=== PATIENT | male | born 1935 | race Caucasian/White ===

== ENCOUNTER 2020-06-01 15:05 | Emergency (ER) | payer MEDICARE, SELFPAY ==
[2020-06-01 15:10] VITALS: BP 161/77; PULSE 64; RESP 16; TEMP 36.7; O2SAT 98; BMI 22.4
--- NOTE | 2020-06-01 16:06 | ED.WOUNDLAC ---
HPI - Wound/Laceration General Chief Complaint: Wound/Laceration Stated Complaint: LAC Time Seen by Provider: 06/01/20 15:40 Source: patient Mode of arrival: ambulatory Limitations: no limitations History of Present Illness HPI narrative: 84-year-old male who tells me he was outside walking when he saw a pretty pink rock and went to pick it up for his but was scared by a bunny and so became startled and fell. He struck the right elbow as well as will hit his bilateral hands. He denies hitting his head or loss of consciousness. Denies anticoagulation use. No joint pain or swelling. Related Data Allergies Allergy/AdvReac Type Severity Reaction Status Date / Time No Known Allergies Allergy Unverified 11/13/19 15:11 Review of Systems Review of Systems: Yes all other systems are reviewed and are negative Constitutional: Constitutional: Reports no additional constitutional complaints, Denies body ache(s), Denies chills, Denies fever(s), Denies headache(s) and Denies weakness Eyes: Eyes: Reports no additional eye complaints and Denies change in vision ENT: Reports system reviewed and no additional complaints, except as documented, Denies dizziness, Denies headache(s), Denies nasal congestion, Denies nasal discharge and Denies neck pain Cardiovascular: Cardiovascular: Reports no additional cardiovascular complaints, Denies chest pain, Denies leg edema and Denies dyspnea Respiratory: Respiratory: Reports no additional respiratory complaints, Denies cough and Denies dyspnea Gastrointestinal: Gastrointestinal: Reports no additional gastrointestinal complaints, Denies abdominal pain, Denies diarrhea, Denies nausea and Denies vomiting Genitourinary: Genitourinary: Denies urinary incontinence Musculoskeletal: Musculoskeletal: Reports no additional musculoskeletal complaints, Denies back pain, Denies arthralgias, Denies joint swelling, Denies neck pain, Denies numbness and Denies tingling Integumentary/Breasts: Skin/Breast: Reports system reviewed and no additional complaints, except as docu and Denies rash Comments: Skin tear Neurologic: Reports system reviewed and no additional complaints, except as documented, Denies Abnormal speech present, Denies dizziness, Denies headache(s), Denies numbness, Denies tingling and Denies weakness PMF Past Medical History Attestation statement: The following information was validated with the patient. Source: old records reviewed and nursing notes reviewed Medical History Tremor Social History Social History Advance Directives: No Advance Directives Information Provided: No Physical Exam Vital Signs: Vital Signs: Last Vital Signs Temp 98.1 F 06/01/20 15:10 Pulse 64 06/01/20 15:10 Resp 16 06/01/20 15:10 BP 161/77 H 06/01/20 15:10 Pulse Ox 98 06/01/20 15:10 Body Mass Index 22.4 Const: General: cooperative, healthy appearing, comfortable and no acute distress Orientation/consciousness: patient oriented x3 Limitations: no limitations HENMT: Head: Yes normal to inspection Ears: hearing grossly normal bilaterally General nose exam: Normal external nose present Face and sinus: Yes normal facial exam Mouth: Normal oral and palatal mucosa present Throat: Yes posterior oropharynx normal Eyes: General: appearance normal, both eyes and all related structures Pupils: Equal, round and reactive pupils present Neck: Neck: Yes normal visual inspection Chest: Chest palpation & inspection: normal inspection of the chest Resp: Effort & Inspection: normal respiratory effort Auscultation: clear to auscultation bilaterally Cardio: Rate: regular rate Rhythm: regular rhythm Peripheral pulses: Peripheral pulses 2+ throughout GI: Inspection: Yes normal to inspection Palpation (GI): Soft to palpation and nontender Auscultation: normal bowel sounds Back/Spine/Pelvis: Thoracic/Lumbar Spine: thoracic and lumbar spine normal to inspection Skin: General skin exam: no rashes or lesions noted Neuro: General: patient oriented x3, no focal motor deficits and normal sensation to monofilament Cranial nerves: Yes Equal, round and reactive pupils present Cognition (Neuro): normal cognition Speech: No Abnormal speech present Gait exam (Neuro): Normal gait present Motor exam (neuro): 5/5 motor strength present throughout Extrem: Other: 1. right wrist distal volar wrist 2cm skin avulsion. No active bleeding. No joint pain. Full range of motion. 2. left wrist distal volar wrist 2cm skin avulsion. No active bleeding. No joint pain. Full range of motion. 3. right distal dorsal FA 4m skin avulsion. No active bleeding. No joint pain. Full range of motion. 4. right proximal dorsal FA 8cm skin avulsion. No active bleeding. No joint pain. Full range of motion. General: Yes normal to inspection Course Course Course Narrative: Multiple skin tears from a mechanical fall. No head injury or loss of consciousness. Full range of motion of all affected joints. Declined tetanus shot. Sites were cleansed with normal saline and hydrogen peroxide with a vigorous scrub. Steri-Strips were applied with a Kerlix wrap to all four sites. Reviewed worrisome and symptoms and when to return to the emergency department. Comfortable discharge home. Discharge Plan Discharge Clinical Impression: Avulsion of skin Patient Disposition: Home, Self-Care Instructions: Skin Avulsion (ED) Additional Instructions: The steri strips will start to lift and fall off You may trim the edges Remove after 7 days Return for redness, drainage, fevers, chills, difficulty moving the joints that are affected Referrals: Piotr Farley MD [Primary Care Provider] - 2 days Interventions: ED Discharge Assessment Last Done: 06/01/20 16:16 Discharge Date/Time: 06/01/20 16:17
== END 2020-06-01 16:17 | disposition home or self-care (01) ==
PROVIDERS: Emergency Provider Emergency Medicine; PCP Internal Medicine
DX: S51.001A Unspecified open wound of right elbow, initial encounter (principal); M79.642 Pain in left hand; M79.641 Pain in right hand; W01.0XXA Fall on same level from slipping, tripping and stumbling without subsequent striking against object, initial encounter; Y93.01 Activity, walking, marching and hiking; Y92.9 Unspecified place or not applicable; Y99.9 Unspecified external cause status
CPT/HCPCS: 99283

== ENCOUNTER 2020-07-01 11:21 | Emergency (ER) | payer MEDICARE, SELFPAY ==
[2020-07-01 11:29] VITALS: BP 141/77; PULSE 58; RESP 16; TEMP 36.6; O2SAT 98; BMI 23.7
--- NOTE | 2020-07-01 12:01 | PC.NURSE ---
bilateral upper arm skin tears. bleeding controlled.
--- NOTE | 2020-07-01 12:34 | ED.GENADULT ---
HPI - General Adult General Chief complaint: Fall Stated complaint: FALL Time Seen by Provider: 07/01/20 12:34 Source: patient Limitations: no limitations History of Present Illness HPI narrative: Patient states he he was stepping off a step ladder and lost his footing cutting his right and left elbows on his deck. Patient states he was cleaning her bird feces on his 's 10. Patient denies any loss of consciousness or hitting his head or any other complaints of his extremities. Patient denies being on any blood thinners denies tobacco history. Patient denies dizziness shortness of breath fever chills. Related Data Allergies Allergy/AdvReac Type Severity Reaction Status Date / Time No Known Allergies Allergy Unverified 11/13/19 15:11 Review of Systems Review of Systems: Constitutional : No Weight loss, No Fever, No Chills Eyes: No Eye Pain, No Swelling, No Redness, No Foreign Body, No Discharge, No Vision Changes Cardiovascular : No Chest Pain, No SOB, No Dyspnea on Exertion, No Orthopnea, No Edema, No Palpitations Respiratory : No Cough, No Sputum, No Wheezing, No Smoke Exposure, No Dyspnea Gastrointestinal : No Nausea, No Vomiting, No Diarrhea Musculoskeletal : No joint pain, No Myalgias, No Joint SwellingSkin : No Skin Lesions, No rash Neuro : No Weakness, No Numbness, No Paresthesias, No Loss of Consciousness, No Dizziness, No Headache Psych : No Anxiety/Panic, No Depression, No SI/HI/AH/VH, No Social Issues, Heme/Lymph: Bleeding to the right and left upper extremity Endocrine : No Polyuria, No Polydipsia, No Temperature Intolerance PMFSH Past Medical History Attestation statement: The following information was validated with the patient. Medical History Tremor Social History Social History Advance Directives: No Advance Directives Information Provided: No Physical Exam Vital Signs: Vital Signs: Last Vital Signs Temp 97.9 F 07/01/20 11:29 Pulse 58 07/01/20 11:29 Resp 16 07/01/20 11:29 BP 141/77 H 07/01/20 11:29 Pulse Ox 98 07/01/20 11:29 Body Mass Index 23.7 vital signs have been reviewed as normal and appeared to be correct. Blood pressure normal. Heart rate normal. Respiration rate normal. Temperature normal. Oxygen saturation normal. Appearance: Alert. Oriented X3. No acute distress. Head: Normal external exam. Normocephalic. Atraumatic. No Demarco signs noted. No raccoon eyes noted Eyes: PERRLA. EOMI. Conjunctiva and sclera normal. Eyelids normal. ENT: Pharynx normal. Uvula midline. Moist mucous membranes. No trismus noted. No drooling noted. No muffled voice noted. Neck: Soft full range of motion, no JVD CVS: Heart regular rate and rhythm no murmurs and rubs Respiratory: Breath sounds are clear to auscultation bilaterally. No accessory muscle use noted. Abdomen: Soft nontender no rebound or guarding positive bowel sounds Back: No CVA tenderness. Full range of motion noted. Skin: Patient's purse approximately 5-6 cm skin tear on the right elbow. Her superficial. Patient has 2 small skin tears in the triceps of the left upper extremity measuring approximately 1.5 cm each v-shaped. Extremities: Patient is moving all extremities patient is ambulatory. Medial and lateral epicondyles bilateral elbows nontender full range of motion. Neuro: Oriented X 3. No motor deficit. No sensory deficit. Reflexes normal. No ataxia. Course Course Course Narrative: Has multiple skin tears on the right and left upper extremity they do not appear suturable will apply Steri-Strips Xeroform dressing at this time. Tetanus shot is up to Discharge Plan Discharge Clinical Impression: Skin tear of elbow without complication Patient Disposition: Home, Self-Care Instructions: Skin Tear (ED) Additional Instructions: Leave current dressing on 20/4 to 36 hours. Steri-Strips will fall off on their own. Topical [id number] antibiotic ointment would be beneficial.
== END 2020-07-01 13:02 | disposition home or self-care (01) ==
PROVIDERS: Emergency Provider Emergency Medicine; PCP Internal Medicine
DX: S51.012A Laceration without foreign body of left elbow, initial encounter (principal); S51.011A Laceration without foreign body of right elbow, initial encounter; M79.602 Pain in left arm; M79.601 Pain in right arm; W01.0XXA Fall on same level from slipping, tripping and stumbling without subsequent striking against object, initial encounter; Y93.9 Activity, unspecified; Y92.009 Unspecified place in unspecified non-institutional (private) residence as the place of occurrence of the external cause; Y99.9 Unspecified external cause status
CPT/HCPCS: 99283

== ENCOUNTER 2021-09-20 07:25 | Emergency (ER) | payer MEDICARE, SELFPAY ==
--- NOTE | ~2021-09-20 | CT_ITS ---
EXAMINATION: CT HEAD W/O IV CONTRAST CT CERVICAL SPINE W/O IV CONTRAST CLINICAL INFORMATION: History of fall. COMPARISON: None TECHNIQUE: Head - Contiguous axial imaging of the head was performed from the skull base to the vertex without the administration of intravenous contrast, and axial images are reconstructed at 2 mm and 5 mm slice thickness. Cervical spine - A volumetric, helical CT acquisition of the cervical spine was obtained without contrast; in addition to the standard set of axial images, multiplanar reformatted images were provided in the coronal and sagittal imaging planes. This CT examination was performed using dose optimization techniques as appropriate, variously including the following: *Automated exposure control *Adjustment of mA and/or kV according to patient size (this includes techniques or standardized protocols for targeted exams where dose is matched to indication/reason for exam; i.e. extremities or head) *Use of iterative reconstruction technique DLP: 1171 mGy-cm (total) FINDINGS: HEAD: No evidence of intracranial hemorrhage, major vascular territory infarction, focal mass effect or midline shift. No extra-axial fluid collection. Molina to white matter differentiation is preserved. Mild parenchymal volume loss with commensurate prominence of ventricles and sulci; no hydrocephalus. There is atherosclerotic calcification of cavernous carotid arteries. 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 The calvarium is intact. The paranasal sinuses and mastoid air cells are well aerated. Prior ocular lens extractions. The temporomandibular joints are normal. There is a right occipital scalp hematoma and small focus of soft tissue gas deep to region of skin alex overlying site of soft tissue injury. No radiopaque foreign body. CERVICAL SPINE: The cervical spine has normal curvature. The craniocervical junction is normal. The occipital condyles, dens and atlantodental articulation are intact. The vertebral body heights are maintained. Multilevel facet arthropathy and discovertebral degenerative change. Mild vertebral subluxations are noted at several levels. Findings include minimal degenerative retrolisthesis at C3-C4, 0.2 cm of anterolisthesis at C4-C5 and 0.25 mm of anterolisthesis at C7-T1. No fractures in the anterior or posterior elements. No prevertebral soft tissue swelling. No hematoma in the visualized neck. The examined lung apices are clear. Thyroid gland is normal. CT/CT cervical spine wo con IMPRESSION: * There is a right occipital scalp hematoma without calvarial fracture. * No intracranial hemorrhage or other acute intracranial pathology. * No fracture or traumatic subluxation in the degenerated cervical spine.
--- NOTE | ~2021-09-20 | XR_ITS ---
EXAMINATION: XR RIBS, BILATERAL CLINICAL INFORMATION: Bilateral rib pain status post fall. COMPARISON: 07/28/2013 chest radiograph. TECHNIQUE: 3 views of the bilateral ribs were obtained. FINDINGS: Coarse pleural calcifications are noted bilaterally. Linear scarring/atelectasis seen in the right midlung. There are no pleural effusions. The heart and mediastinal structures are unremarkable. Osseous structures are unremarkable. Ribs are intact. No fractures are identified. XR/XR ribs BI min 4V w CXR1V IMPRESSION: 1. 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 No acute cardiopulmonary process. 2. No overt acute rib fracture.
[2021-09-20 07:50] VITALS: BP 142/68; PULSE 53; RESP 18; TEMP 35.6; O2SAT 97; BMI 25.1
--- NOTE | 2021-09-20 08:02 | ED_ITS ---
HPI - Fall General Chief Complaint: Fall Stated Complaint: Fall/R rib pain/Head lac Time Seen by Provider: 09/20/21 07:30 Source: patient Mode of arrival: ambulatory Limitations: no limitations History of Present Illness HPI Narrative: Patient comes to the emergency room complaining of a fall. Patient states that earlier today, patient was trying to get out of bed, patient slipped out of bed, landed on the right side of his body and hitting the back of his head. Patient states that he did not lose consciousness, patient is not on blood thinners. Patient had difficulty getting up, he was on the floor for about 10-15 minutes. Eventually, he was lifted up by his . Patient complaining of a laceration to the scalp posteriorly and right-sided rib pain. Patient denies chest pain or shortness of breath, no abdominal pain, no hip pain or lower extremity pain. Related Data Allergies Allergy/AdvReac Type Severity Reaction Status Date / Time No Known Allergies Allergy Unverified 11/13/19 15:11 Review of Systems Review of Systems: Constitutional : No Weight loss, No Fever, No Chills, No Night Sweats, No Fatigue, No Malaise ENT/Mouth : No Hearing loss, No Ear Pain, No Nasal Congestion, No Sinus Pain, No Hoarseness, No sore throat, No Rhinorrhea, No Swallowing Difficulty Eyes: No Eye Pain, No Swelling, No Redness, No Foreign Body, No Discharge, No Vision Changes Cardiovascular : No Chest Pain, No SOB, No Dyspnea on Exertion, No Orthopnea, No Edema, No Palpitations Respiratory : No Cough, No Sputum, No Wheezing, No Smoke Exposure, No Dyspnea Gastrointestinal : No Nausea, No Vomiting, No Diarrhea, No Constipation, No abdominal Pain, No Hematochezia, No Melena Genitourinary : no irregular bleeding, No Dysuria, No Urinary Frequency, No Hematuria, No Urinary Incontinence, No Urgency, No Flank Pain, No Urinary Flow Changes, No Hesitancy Musculoskeletal : No joint pain, No Myalgias, No Joint Swelling, complaining of right-sided rib pain Skin : Complaining of a laceration to the scalp posteriorly Neuro : No Weakness, No Numbness, No Paresthesias, No Loss of Consciousness, No Dizziness, No Headache Psych : No Anxiety/Panic, No Depression, No SI/HI/AH/VH, No Social Issues, Heme/Lymph: No Bruising, No Bleeding,No Lymphadenopathy Endocrine : No Polyuria, No Polydipsia, No Temperature Intolerance [facility] Past Medical History Medical History Tremor Social History Social History Advance Directives: Yes Advance Directives Information Provided: No Advance Directives on File: No Physical Exam Vital Signs: Vital Signs: Last Vital Signs Temp 96.0 F L 09/20/21 07:50 Pulse 62 09/20/21 10:08 Resp 12 09/20/21 10:08 BP 172/76 H 09/20/21 10:08 Pulse Ox 99 09/20/21 10:08 O2 Del Method 09/20/21 10:08 BMI result Body Mass Index 25.1 Const: Other: Appearance: Alert. Oriented X3. No acute distress. Eyes: Pupils equal, round and reactive to light. ENT: Pharynx normal. Neck: Normal inspection. Neck supple. No lymph nodes noted. No crepitus CVS: Normal heart rate and rhythm. Pulses normal. Normal S1 and S2 Respiratory: No respiratory distress. Breath sounds normal. No Wheezing. No rales Abdomen: Soft and nontender. No rigidity. No distention. Skin: Skin warm and dry. There is a 2 cm laceration to the scalp posteriorly Musculoskeletal: Pain to palpation on the right side of the ribs Extremities: No lower extremity edema. No Lacerations. No Rash Neuro: Oriented X 3. No motor deficit. No sensory deficit. Moving all extremities. No slurred speech. CN 2 through 12 grossly intact Psych: calm, cooperative, normal affect Course Course Course Narrative: Patient received 3 alex, declined lidocaine. CT scan of the head and cervical spine and x-ray of the ribs are pending. Patient was given 1 dose of Tylenol Head and cervical spine CT negative, chest and ribs x-ray showed no acute patho log Patient's says that the patient has been coughing a little bit more than usual, requesting a COVID test which is pending. COVID TEST IS NEGATIVE. Procedures Laceration Laceration 1: Site: scalp Size (cm): 2 Description: stellate Depth: simple, single layer Pre-repair: wound explored Skin layer closed with: other (Mehama) Number of sutures: 3 MDM - Fall Lab Data Labs: Lab Results 09/20/21 Range/Units 09:12 COVID-19 ([facility]) Negative (Negative) COVID-19 Clin Com See Note Imaging Data Head and cervical spine CT: Radiologist's impression: HEAD: No evidence of intracranial hemorrhage, major vascular territory infarction, focal mass effect or midline shift. No extra-axial fluid collection. Molina to white matter differentiation is preserved. Mild parenchymal volume loss with commensurate prominence of ventricles and sulci; no hydrocephalus. There is atherosclerotic calcification of cavernous carotid arteries. 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 The calvarium is intact. The paranasal sinuses and mastoid air cells are well aerated. Prior ocular lens extractions. The temporomandibular joints are normal. There is a right occipital scalp hematoma and small focus of soft tissue gas deep to region of skin alex overlying site of soft tissue injury. No radiopaque foreign body. CERVICAL SPINE: The cervical spine has normal curvature. The craniocervical junction is normal. The occipital condyles, dens and atlantodental articulation are intact. The vertebral body heights are maintained. Multilevel facet arthropathy and discovertebral degenerative change. Mild vertebral subluxations are noted at several levels. Findings include minimal degenerative retrolisthesis at C3-C4, 0.2 cm of anterolisthesis at C4-C5 and 0.25 mm of anterolisthesis at C7-T1. No fractures in the anterior or posterior elements. No prevertebral soft tissue swelling. No hematoma in the visualized neck. The examined lung apices are clear. Thyroid gland is normal.? CT/CT cervical spine wo con IMPRESSION: *? There is a right occipital scalp hematoma without calvarial fracture. *? No intracranial hemorrhage or other acute intracranial pathology. *? No fracture or traumatic subluxation in the degenerated cervical spine. Chest and ribs x-ray: Radiologist's impression: FINDINGS: Coarse pleural calcifications are noted bilaterally. Linear scarring/atelectasis seen in the right midlung. There are no pleural effusions. The heart and mediastinal structures are unremarkable. Osseous structures are unremarkable. Ribs are intact. No fractures are identified. XR/XR ribs BI min 4V w CXR1V IMPRESSION: ? 1. 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 No acute cardiopulmonary process. 2. No overt acute rib fracture. Discharge Plan Discharge Clinical Impression: Fall, Laceration of scalp, Contusion of rib on right side Patient Disposition: Home, Self-Care Instructions: Costochondritis (ED), Fall Prevention for Older Adults (ED) Additional Instructions: Please follow-up with your primary care physician tomorrow. If you have any worsening or new symptoms, please return to the emergency room or call [phone]
[2021-09-20 09:19] VITALS: BP 171/68; PULSE 50; RESP 16; O2SAT 100
[2021-09-20 09:58] LABS: COVID-19 Test Negative (Negative); IDNOW Serial# 9DD0AD1C
[2021-09-20 10:08] VITALS: BP 172/76; PULSE 62; RESP 12; O2SAT 99
== END 2021-09-20 11:05 | disposition home or self-care (01) ==
PROVIDERS: Emergency Provider Emergency Medicine; PCP Internal Medicine
DX: S01.01XA Laceration without foreign body of scalp, initial encounter (principal); S20.211A Contusion of right front wall of thorax, initial encounter; W06.XXXA Fall from bed, initial encounter; R05.9 Cough, unspecified; Z20.822 Contact with and (suspected) exposure to COVID-19; Y93.89 Activity, other specified; Y92.013 Bedroom of single-family (private) house as the place of occurrence of the external cause; Y99.9 Unspecified external cause status
CPT/HCPCS: 12001; 70450; 71111; 72125; 87635; 99283; 99284